=== PATIENT | female | born 1995 | race Two or more races ===

== ENCOUNTER 2024-10-08 06:36 | Inpatient (IN) | payer OTHER ==
[~2024-10-08] VITALS: Ht 154.9 cm; Wt 75.7 kg
[2024-10-08 07:12] VITALS: BP 116/56
[2024-10-08] MEDS ORDERED: PRENATAL TABLE1 EAC1 PO (07:52)
[2024-10-08] MEDS ORDERED: AMPICILLIN SODIUM 2,000 MG VIAL IV ONE (08:00)
[2024-10-08] MEDS ORDERED: RINGERS SOLUTION,LACTATED 1,000 ML IV SCH (08:00)
[2024-10-08 08:58] LABS: BASO % 0.4 % (0.1-1.2); EOS # 0.01 (0.04-0.54); EOS % 0.1 % (0.7-7.0); HEMATOCRIT 32.1 % (34.1-44.9); HEMOGLOBIN 10.6 g/dL (11.2-15.7); LYMPH # 1.26 (1.18-3.74); LYMPH % 9.1 % (19.3-53.1); MEAN CORPUSCULAR HEMOGLOBIN 27.3 pg (25.6-32.2); MONO # 0.77 (0.24-0.82); MONO % 5.5 % (4.7-12.5); NEUT # 11.52 (1.56-6.13); NEUT % 82.9 % (34.0-71.1); PLATELET COUNT 279 K/uL (163-369); RED BLOOD COUNT 3.88 M/uL (3.93-5.22); RED CELL DISTRIBUTION WIDTH 13.6 % (11.6-14.4)
[2024-10-08 08:59] LABS: PH,URINE 5.5 (5.0-8.0); URINE APPEARANCE Turbid; URINE BILIRRUBIN Negative (NEGATIVE); URINE BLOOD Large; URINE COLOR Dark Yellow; URINE GLUCOSE Negative (NEGATIVE); URINE LEUKOCYTE Large; URINE NITRATE Negative
[2024-10-08 09:02] LABS: URINE BACTERIA > 9821.5 uL (0.0-1933); URINE CAST 1.32 uL (0.0-1.40); URINE EPITHELIAL CELLS 156.9 uL (0.0-38.8); URINE KETONE 80 (NEGATIVE); URINE PROTEIN 100 (NEGATIVE); URINE RBC 30.9 uL (0.0-20.8); URINE WBC 2673.2 uL (0.0-23.2)
[2024-10-08 09:18] LABS: URINE CRYSTALS MODERATE /HPF
[2024-10-08 09:20] LABS: INR 0.97; PARTIAL THROMBOPLASTIN TIME 31.4 SECONDS (22.0-34.0); PROTHROMBIN TIME 10.6 SECONDS (9.0-11.5)
[2024-10-08] MEDS ORDERED: OXYTOCIN 20 UNITS/500ML RL PIGGYBAG IV ONE (12:00)
[2024-10-08] MEDS ORDERED: OXYTOCIN 20 UNITS/500ML RL PIGGYBAG IV SCH ×2 (12:00→12:45)
[2024-10-08] MEDS ORDERED: AMPICILLIN SODIUM 1,000 MG VIAL IV SCH (12:00)
[2024-10-08] MEDS ORDERED: ERYTHROMYCIN BASE OPHT 1GM EACH TUBE OP ONE ×2 (12:26→15:15)
[2024-10-08] MEDS ORDERED: CHLORHEXIDINE GLUCONATE 120 ML BOTTLE TOP ONE ×3 (12:27→15:30)
[2024-10-08] MEDS ORDERED: OXYTOCIN 20 UNITS/1000ML RL PIGGYBAG IV ONE (12:27)
[2024-10-08] MEDS ORDERED: LIDOCAINE HCL 1% 10ML VIAL ONE (12:27)
[2024-10-08] MEDS ORDERED: OXYTOCIN 500 ML IV SCH (12:45)
[2024-10-08] MEDS ORDERED: METHYLERGONOVINE MALEATE 0.2 MG/ML AMPUL ONE (14:00)
[2024-10-08 14:30] VITALS: BP 105/67
[2024-10-08 14:45] VITALS: BP 116/55
[2024-10-08] MEDS ORDERED: METHYLERGONOVINE MALEATE 0.2 MG/ML AMPUL IM ONE (15:15)
[2024-10-08] MEDS ORDERED: LIDOCAINE HCL 1% 10ML VIAL IJ ONE (15:15)
[2024-10-08] MEDS ORDERED: OXYTOCIN 20 UNITS/1000ML RL PIGGYBAG IV SCH (15:15)
[2024-10-08] MEDS ORDERED: ACETAMINOPHEN 500 MG GEL..CAP PO PRN (15:30)
[2024-10-08] MEDS ORDERED: OXYTOCIN 1,000 ML IV SCH (15:30)
[2024-10-08 15:33] VITALS: BP 100/53
[2024-10-08 16:32] VITALS: BP 105/63
[2024-10-08 19:32] LABS: BASO % 0.3 % (0.1-1.2); HEMATOCRIT 33.9 % (34.1-44.9); HEMOGLOBIN 11.4 g/dL (11.2-15.7); LYMPH # 1.27 (1.18-3.74); LYMPH % 4.8 % (19.3-53.1); MEAN CORPUSCULAR HEMOGLOBIN 27.9 pg (25.6-32.2); MONO # 1.26 (0.24-0.82); MONO % 4.7 % (4.7-12.5); NEUT # 23.65 (1.56-6.13); NEUT % 89.1 % (34.0-71.1); PLATELET COUNT 291 K/uL (163-369); RED BLOOD COUNT 4.08 M/uL (3.93-5.22); RED CELL DISTRIBUTION WIDTH 13.6 % (11.6-14.4)
[2024-10-09] VITALS: BP 97/60
[2024-10-09] MEDS ORDERED: PNV,CALCIUM 72/IRON/FOLIC ACID 1 TAB TABLET PO SCH (09:00)
[2024-10-09 09:05] VITALS: BP 100/57; O2SAT 99
[2024-10-09 13:04] VITALS: BP 105/60
[2024-10-09 16:03] VITALS: BP 103/66
[2024-10-10 01:04] VITALS: BP 113/72
[2024-10-10 09:04] VITALS: BP 116/67
== END 2024-10-10 15:03 | disposition home or self-care (01) | DRG 807 ==
LOC: OB/GYN 06:36 → LDR 06:36 → OB/GYN 14:14
PROVIDERS: ADMIT Obstetrics & Gynecology; ATTEND Obstetrics & Gynecology
PROC: 10E0XZZ Delivery of Products of Conception, External Approach (ICD-10-PCS; principal; 2024-10-08)
PROC: 4A1HXCZ Monitoring of Products of Conception, Cardiac Rate, External Approach (ICD-10-PCS; 2024-10-08)
DX: O80 Encounter for full-term uncomplicated delivery (principal); Z37.0 Single live birth; Z3A.39 39 weeks gestation of pregnancy